=== PATIENT | female | born 1940 | race Caucasian/White ===

== ENCOUNTER 2017-07-11 10:44 | Observation (INO) | payer MEDICARE ==
[2017-07-11 12:25] LABS: ABS Basophils 0.1 10^3/ul (0-0.2); ABS Eosinophils 0.1 10^3/ul (0-0.6); ABS Lymphocytes 0.9 10^3/ul (1.0-4.8); ABS Monocytes 0.5 10^3/ul (0-0.8); ABS Neutrophils 7.9 10^3/ul (1.5-7.7); ABS Nucleated RBC 0 10^3/ul; Eosinophil % 1.3 % (0-6); Hematocrit 37 % (35-47); Hemoglobin 12.6 g/dl (12.0-16.0); Lymphocyte % 9.2 % (25-47); Mean Corpuscular HGB Conc 34 g/dl (31-36); Mean Corpuscular Hemoglobin 32 pg (27-31); Mean Corpuscular Volume 94 fL (80-97); Mean Platelet Volume 10 um3 (7.4-10.4); Nucleated Red Blood Cells % 0.1; Platelet Count 194 10^3/ul (150-450); Red Blood Count 3.92 10^6/ul (4.0-5.4); Red Cell Distribution Width 13 % (10.5-15); White Blood Count 9.6 10^3/ul (3.5-10.8)
[2017-07-11 12:37] LABS: INR 0.95 (0.77-1.02)
[2017-07-11 12:43] LABS: EGFR Non-African American 39.7 (>60)
--- NOTE | 2017-07-11 12:45 | RAD ---
HISTORY: Chest pain COMPARISONS: None VIEWS: 1: frontal portable view of the chest at 12:20 PM FINDINGS: LINES AND TUBES: None. CARDIOMEDIASTINAL SILHOUETTE: The cardiomediastinal silhouette is normal for portable technique. PLEURA: The costophrenic angles are sharp. No pleural abnormalities are noted. LUNG PARENCHYMA: There is hyperinflation. ABDOMEN: The upper abdomen is clear. There is no subphrenic gas. BONES AND SOFT TISSUES: No bone or soft tissue abnormalities are noted. IMPRESSION: HYPERINFLATION. NO ACTIVE CARDIOPULMONARY DISEASE.
[2017-07-11 14:47] LABS: Urine Appearance Cloudy; Urine Blood 1+ (Negative); Urine Color Yellow; Urine Ketones Trace (Negative); Urine Protein Negative (Negative); Urine Specific Gravity 1.016 (1.010-1.030); Urine Urobilinogen Negative (Negative)
[2017-07-11] MEDS ORDERED: Acetaminophen TAB* 325 MG PO PRN (15:01)
[2017-07-11] MEDS ORDERED: Docusate CAP* 100 MG PO PRN (15:05)
--- NOTE | 2017-07-11 15:24 | RAD ---
HISTORY: Fall, syncope, head injury COMPARISONS: None TECHNIQUE: Multiple contiguous axial CT scans were obtained of the head without intravenous contrast. FINDINGS: HEMORRHAGE/INFARCT: There is no hemorrhage or acute infarct. MASSES/SHIFT: There is no mass or shift. EXTRA-AXIAL SPACES: There are no extra-axial fluid collections. SULCI AND VENTRICLES: The sulci and ventricles are normal in size and position for the patient's stated age. CEREBRUM: There is hypoattenuation of the periventricular and subcortical white matter. There is chronic lacunar infarct of the right frontal pramar radiata. BRAINSTEM: There are no focal parenchymal abnormalities. CEREBELLUM: There are no focal parenchymal abnormalities. VESSELS: The vessels are grossly normal. PARANASAL SINUSES: The paranasal sinuses are clear. ORBITS: The orbits are unremarkable. BONES AND SOFT TISSUE: No bone or soft tissue abnormalities are noted. OTHER: None IMPRESSION: NO ACUTE INTRACRANIAL PATHOLOGY. CHRONIC SMALL VESSEL ISCHEMIC CHANGES
[2017-07-11] MEDS: Sulfamethox/Trimethoprim DS 800/160* TAB PO SCH ×2 (16:36→21:33)
[2017-07-11] MEDS ORDERED: Latanoprost 0.005%* 2.5 ml BTL BOTH EYES SCH (18:00)
--- NOTE | 2017-07-11 19:36 | HP ---
ADDENDUM NOW INCLUDED ON THIS REPORT CC: Dr. Rodriguez * HISTORY AND PHYSICAL: DATE OF ADMISSION: 07/11/17 PRIMARY CARE PHYSICIAN: Dr. Rodriguez. ATTENDING PHYSICIAN: Linda Yancey DO * (dictation provided by Vivian Deal NP ). CHIEF COMPLAINT: Syncope. HISTORY OF PRESENT ILLNESS: Ms. 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 The patient states that since that time she has been doing well. She is on multiple blood pressure medications. She has followed with her primary care physician and her blood pressure has been well controlled. She has had no further symptoms. Today, she went to observe a sporting event which her granddaughter was participating in with her 2 daughters. While there, she states she felt quite hot and was wearing a heavy coat indoors as there was nowhere to sit. She is reported to have suddenly leaned back and slid down against a door which opened allowing her to fall and hit her head. She does not remember any prodrome before falling and becoming unresponsive. Her daughter states that she lifted her up, but the patient was very weak. When she was holding her up, the patient again seemed to go unconscious. There is no report of convulsions, loss of bowel/bladder, or biting of the tongue. After a few seconds, she woke up and was back to baseline, asking to go home. The daughter strongly encouraged her to be brought to the hospital via EMS. In the emergency room, Ms. Green has no complaints. She would prefer to be discharged to home as she is feeling well now and does not like to seek out medical care. Her labs show only a slightly elevated creatinine to 1.30 which is the highest that we have seen yet here. Back in November of last year, she was 1.22. Rest of her labs are unremarkable. Her chest x-ray is unremarkable. Her EKG shows a sinus rhythm, but no evidence of ischemia. PAST MEDICAL HISTORY: 1. History of renovascular hypertension. 2. Left renal artery stenosis. 3. Glaucoma of both eyes. 4. Tobacco abuse, quitting in January 2017. 5. Arthritis. 6. 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 7. Cerebral amyloid angiopathy. 8. Posterior reversible encephalopathy syndrome. 9. Hypertensive emergency. 10. GERD. MEDICATIONS: 1. Tylenol p.r.n. 2. Amlodipine 5 mg p.o. b.i.d. 3. Atorvastatin 40 mg p.o. daily. 4. Carvedilol 6.25 mg b.i.d. 5. Docusate 100 mg b.i.d. p.r.n. constipation. 6. Losartan 100 mg p.o. daily. 7. Ranitidine 150 mg p.o. b.i.d. 8. Multivitamin 1 tablet p.o. daily. 9. Ferrous sulfate 325 mg p.o. daily. 10. Latanoprost 0.005% 1 drop both eyes nightly. 11. [place]-3 fatty acid 1 tab by mouth daily. ALLERGIES: No known drug allergies. FAMILY HISTORY: The patient reports that her mom and dad both related to heart issues. Her mom at 82. Dad at 88. Father also had a history of melanoma. SOCIAL HISTORY: The patient quit smoking in 2017, but she smoked since the age of 14. No report of alcohol or drug use. She states that her daughters, Usha and Lois Green, would be her healthcare proxies. REVIEW OF SYSTEMS: A 14-point review of systems was completed with Ms. Green , and all those not mentioned above were negative. PHYSICAL EXAMINATION GENERAL: Ms. Green is sitting up in the bed. She is in no acute distress. Her daughter is at the bedside. VITAL SIGNS: Temperature 99.1, pulse 87, respiratory rate 20, O2 saturation 97 % on room air, blood pressure 133/64. LUNGS: Clear to auscultation bilaterally with no accessory muscle use and good aeration. HEART: S1, S2. No murmur, rub, or gallop, and regular. ABDOMEN: Soft, nontender with bowel sounds positive x4. EXTREMITIES: No cyanosis or edema. NEUROLOGIC: She is alert, she is oriented x3. She moves all extremities equally. Follows all commands appropriately. There is no facial asymmetry. No focal weakness. Extraocular movements are intact. There is no ataxia. SKIN: Intact. DIAGNOSTIC STUDIES/LAB DATA: Sodium 135, potassium 3.8, chloride 101, serum bicarbonate 26, BUN 24, creatinine 1.30, glucose 97, lactic acid 0.6. WBC 9.6, hemoglobin 12.6, hematocrit 37, platelet count 194,000. INR 0.95. Chest x-ray shows no acute intrathoracic process. EKG shows sinus rhythm with a heart rate of about 60 and no evidence of ischemia. ASSESSMENT/PLAN: Ms. Green is a 76-year-old female with a past medical history of admission to [facility] in January 2017 for hypertensive emergency during which time, she was found to have renovascular hypertension secondary to a left renal artery stenosis. That admission was complicated by right middle cerebral artery and cerebrovascular accident, cerebral amyloid angiopathy, and posterior reversible encephalopathy syndrome. The patient states she has been doing well since that admission on her multi-regimen antihypertensive drugs. The patient presents today after a syncopal episode. Our plans are for observation in the hospital for the followin. Syncope: The patient denies any prodrome prior to passing out. I am therefore, more concerned that perhaps she had an arrhythmia or low blood pressure leading to her syncopal episode. Plan for telemetry monitoring. I am not planning to order an echocardiogram as she did have one at [facility] in 2017 that failed to show any significant abnormality including no wall motion or valvular issues. At this point, she is not orthostatic. I plan to continue her current drug regimen and recheck for orthostatic vital signs in the a.m. Her labs are unremarkable. She shows no evidence of infection. It is possible that she did have a vasovagal episode as she feels like that she syncopized due to "feeling hot." However, with the lack of prodrome, this is somewhat less likely. If no etiology is found after 24 hours of telemetry monitoring, we would recommend followup outpatient for Holter monitor or placement of loop recorder. 2. Hypertension. The patient's blood pressure is well controlled, systolically about 110. Plan to continue her regimen of carvedilol, losartan, and amlodipine. 3. Hyperlipidemia. Continue atorvastatin. 4. Gastroesophageal reflux disease. 5. DVT prophylaxis with heparin subcu. 6. Code status is full code. TIME SPENT: Approximately 60 minutes was spent on the admission of this patient ; more than half time was spent with the patient at the bedside reviewing the events leading up to this hospitalization, performing the physical examination, and reviewing my plan of care. ADDENDUM: The patient has urinalysis returned with positive nitrite, 3+ leuk esterase and bacteria. She denied any symptoms of burning or frequency with urination but given her symptoms, I suspect perhaps that UTI was in part the cause of her syncope today. Plan to treat with Bactrim and await urine cultures. VIVIAN DEAL NP [id number]/CPS #: [id number] [id number]/CPS #: [id number] ZULEYMA
--- NOTE | 2017-07-11 19:52 | HP ---
HISTORY AND PHYSICAL: ADDENDUM: The patient has urinalysis returned with positive nitrite, 3+ leuk esterase and bacteria. She denied any symptoms of burning or frequency with urination but given her symptoms, I suspect perhaps that UTI was in part the cause of her syncope today. Plan to treat with Bactrim and await urine cultures. SAHRA PHAN, END FINDER TWISTING DEPARTMENT [id number]/[facility] #: [id number] ZULEYMA
[2017-07-11] MEDS: amLODIPine TAB* 5 MG PO SCH (21:34)
[2017-07-11] MEDS: Heparin VIAL(*) 5000 UNITS/ML VIAL (FIVE THOUSAND) SUBCUT SCH (21:34)
[2017-07-11] MEDS: Carvedilol TAB* 6.25 MG PO SCH (21:34)
[2017-07-12] MEDS: Heparin VIAL(*) 5000 UNITS/ML VIAL (FIVE THOUSAND) SUBCUT SCH (05:41)
[2017-07-12] MEDS ORDERED: Ferrous Sulfate TAB* 325 MG PO SCH (09:00)
[2017-07-12] MEDS ORDERED: Atorvastatin* 40 MG TAB PO SCH (09:00)
[2017-07-12] MEDS ORDERED: Losartan TAB* 25 MG PO SCH (09:00)
[2017-07-12 09:13] VITALS: BP 140/63
[2017-07-12] MEDS: Sulfamethox/Trimethoprim DS 800/160* TAB PO SCH (09:15)
[2017-07-12] MEDS: Carvedilol TAB* 6.25 MG PO SCH (09:15)
[2017-07-12] MEDS: amLODIPine TAB* 5 MG PO SCH (09:15)
--- NOTE | 2017-07-12 16:01 | ED ---
Madhuri Nicholas Julia, scribed for Sher Diaz MD on 07/11/17 at 1139 . Syncope/Near Syncope - HPI Summary HPI Summary: This patient is a 76 year old F BIBA to [facility] accompanied by her daughters with a chief complaint of a syncopal event at 9:50 this morning. Patient reports feeling warm for 10 minutes before event and started feeling better when the ambulance arrived at the scene. Her daughter reports she slid down door fell and hit her head, she couldnt walk, was disoriented, and was shaking her head during syncope. Patient denies pain, changes in appetite, respiratory changes, or bowel symptoms. Patient has history of HTN, renal dysfunction, and a TIA in January 2017. Patient is being seen by DR. Rodriguez at [facility]. - History Of Current Complaint Chief Complaint: EDSyncope Time Seen by Provider: 07/11/17 11:21 Hx Obtained From: Patient, Family/Return To Vendor Onset/Duration: Sudden Onset, Lasting Minutes Context: Witnessed Associated Head Trauma: Yes Aggravating Factor(s): Nothing Alleviating Factor(s): Nothing Associated Signs And Symptoms: Other - couldnt walk, disoriented, and was shaking her head during syncope - Allergies/Home Medications Allergies/Adverse Reactions: Allergies Allergy/AdvReac Type Severity Reaction Status Date / Time No Known Allergies Allergy Verified 02/03/13 09:05 Home Medications: Home Medications Acetaminophen TAB* [Tylenol TAB*] 650 mg PO Q4H PRN 07/11/17 [History Confirmed 07/11/17] Atorvastatin* [Lipitor 40 MG*] 40 mg PO DAILY 07/11/17 [History Confirmed ] Carvedilol TAB* [Coreg TAB*] 6.25 mg PO BID 07/11/17 [History Confirmed 07/11/17 ] Docusate CAP* [Colace Cap*] 1 cap PO BID PRN 07/11/17 [History Confirmed ] Ferrous Sulfate TAB* 325 mg PO DAILY 07/11/17 [History Confirmed 07/11/17] Latanoprost 0.005%* [Xalatan 0.005%*] 1 drop BOTH EYES QPM 07/11/17 [History Confirmed 07/11/17] Losartan TAB* [Cozaar TAB*] 100 mg PO DAILY 07/11/17 [History Confirmed 07/11/17 ] Ranitidine TAB (NF) [Zantac TAB (NF)] 150 mg PO BID 07/11/17 [History Confirmed 07/11/17] amLODIPine TAB* [Norvasc 5 mg TAB*] 5 mg PO BID 07/11/17 [History Confirmed ] PMH/Surg Hx/FS Hx/Imm Hx Endocrine/Hematology History: Denies: Hx Diabetes, Hx Thyroid Disease Cardiovascular History: Reports: Hx Hypertension Respiratory History: Denies: Hx Asthma Neurological History: Reports: Hx Transient Ischemic Attacks (TIA) Infectious Disease History: No Infectious Disease History: Denies: Traveled Outside the [place] in Last 30 Days - Family History Known Family History: Positive: Cardiac Disease, Diabetes, Other - [place] - Social History Alcohol Use: Weekly Substance Use Type: Reports: None Smoking Status (MU): Smoker, Current Status Unknown Type: Cigarettes Amount Used/How Often: 4-5 cigs daily Review of Systems Positive: Other - warm before syncope Positive: Syncope All Other Systems Reviewed And Are Negative: Yes Physical Exam - Summary Physical Exam Summary: Appearance: The patient is well-nourished in no acute distress and in no acute pain. Skin: The skin is warm and dry and skin color reflects adequate perfusion. HEENT: The head is normocephalic and atraumatic. The pupils are equal and reactive. The conjunctivae are clear and without drainage. Nares are patent and without drainage. Mouth reveals moist mucous membranes and the throat is without erythema and exudate. The external ears are intact. The ear canals are patent and without drainage. The tympanic membranes are intact. Neck: the neck is supple with full range of motion and non-tender. There are no carotid bruits. There is no neck vein distension. Respiratory: Chest is non-tender. Lungs are clear to auscultation and breath sounds are symmetrical and equal. Cardiovascular: Heart is regular rate and rhythm. There is no murmur or rub auscultated. There is no peripheral edema and pulses are symmetrical and equal. Abdomen: The abdomen is soft and non-tender. There are normal bowel sounds heard in all four quadrants and there is no organomegaly palpated. Musculoskeletal: There is no back tenderness noted. Extremities are non-tender with full range of motion. There is good capillary refill. There is no peripheral edema or calf tenderness elicited. Neurological: Patient is alert and oriented to person, place and time. The patient has symmetrical motor strength in all four extremities. Cranial nerves are grossly intact. Deep tendon reflexes are symmetrical and equal in all four extremities. Psychiatric: The patient has an appropriate affect and does not exhibit any anxiety or depression. Triage Information Reviewed: Yes Vital Signs On Initial Exam: Initial Vitals Temp Pulse Resp BP Pulse Ox 99.1 F 77 20 133/64 97 07/11/17 10:48 07/11/17 10:48 07/11/17 10:48 07/11/17 10:48 07/11/17 10:48 Vital Signs Reviewed: Yes - [place] Coma Scale Coma Scale Total: 15 Diagnostics - Vital Signs Vital Signs Temp Pulse Resp BP Pulse Ox 07/11/17 10:48 99.1 F 77 20 133/64 97 - Laboratory Lab Results: Lab Results 07/11/17 07/11/17 07/11/17 Range/Units 12:14 12:14 12:14 WBC 9.6 (3.5-10.8) 10^3/ul RBC 3.92 L (4.0-5.4) 10^6/ul Hgb 12.6 (12.0-16.0) g/dl Hct 37 (35-47) % MCV 94 (80-97) fL MCH 32 H (27-31) pg MCHC 34 (31-36) g/dl RDW 13 (10.5-15) % Plt Count 194 (150-450) 10^3/ul MPV 10 (7.4-10.4) um3 Neut % (Auto) 83.2 H (38-83) % Lymph % (Auto) 9.2 L (25-47) % [place] % (Auto) 5.7 (1-9) % Eos % (Auto) 1.3 (0-6) % Baso % (Auto) 0.6 (0-2) % Absolute Neuts (auto) 7.9 H (1.5-7.7) 10^3/ul Absolute Lymphs (auto) 0.9 L (1.0-4.8) 10^3/ul Absolute Monos (auto) 0.5 (0-0.8) 10^3/ul Absolute Eos (auto) 0.1 (0-0.6) 10^3/ul Absolute Basos (auto) 0.1 (0-0.2) 10^3/ul Absolute Nucleated RBC 0 10^3/ul Nucleated RBC % 0.1 INR (Anticoag Therapy) 0.95 (0.77-1.02) Sodium 135 (133-145) mmol/L Potassium 3.8 (3.5-5.0) mmol/L Chloride 101 (101-111) mmol/L Carbon Dioxide 26 (22-32) mmol/L Anion Gap 8 (2-11) mmol/L BUN 24 (6-24) mg/dL Creatinine 1.30 H (0.51-0.95) mg/dL Est GFR ( Amer) 51.1 (>60) Est GFR (Non-Af Amer) 39.7 (>60) BUN/Creatinine Ratio 18.5 (8-20) Glucose 97 (70-100) mg/dL Lactic Acid (0.5-2.0) mmol/L Calcium 9.5 (8.6-10.3) mg/dL Magnesium 2.1 (1.9-2.7) mg/dL Total Bilirubin 0.50 (0.2-1.0) mg/dL AST 23 (13-39) U/L ALT 18 (7-52) U/L Alkaline Phosphatase 126 H (34-104) U/L Troponin I 0.01 (<0.04) ng/mL Total Protein 7.1 (6.4-8.9) g/dL Albumin 3.9 (3.2-5.2) g/dL Globulin 3.2 (2-4) g/dL Albumin/Globulin Ratio 1.2 (1-3) TSH 5.13 (0.34-5.60) mcIU/mL Urine Color Urine Appearance Urine pH (5-9) Ur Specific [place] (1.010-1.030) Urine Protein (Negative) Urine Ketones (Negative) Urine Blood (Negative) Urine Nitrate (Negative) Urine Bilirubin (Negative) Urine Urobilinogen (Negative) Ur Leukocyte Esterase (Negative) Urine WBC (Auto) (Absent) Urine RBC (Auto) (Absent) Ur Squamous Epith Cells (Absent) Urine Bacteria (Absent) Hyaline Casts (Absent) Urine Glucose (Negative) 07/11/17 07/11/17 Range/Units 12:14 14:16 WBC (3.5-10.8) 10^3/ul RBC (4.0-5.4) 10^6/ul Hgb (12.0-16.0) g/dl Hct (35-47) % MCV (80-97) fL MCH (27-31) pg MCHC (31-36) g/dl RDW (10.5-15) % Plt Count (150-450) 10^3/ul MPV (7.4-10.4) um3 Neut % (Auto) (38-83) % Lymph % (Auto) (25-47) % Mccormick % (Auto) (1-9) % Eos % (Auto) (0-6) % Baso % (Auto) (0-2) % Absolute Neuts (auto) (1.5-7.7) 10^3/ul Absolute Lymphs (auto) (1.0-4.8) 10^3/ul Absolute Monos (auto) (0-0.8) 10^3/ul Absolute Eos (auto) (0-0.6) 10^3/ul Absolute Basos (auto) (0-0.2) 10^3/ul Absolute Nucleated RBC 10^3/ul Nucleated RBC % INR (Anticoag Therapy) (0.77-1.02) Sodium (133-145) mmol/L Potassium (3.5-5.0) mmol/L Chloride (101-111) mmol/L Carbon Dioxide (22-32) mmol/L Anion Gap (2-11) mmol/L BUN (6-24) mg/dL Creatinine (0.51-0.95) mg/dL Est GFR ( Amer) (>60) Est GFR (Non-Af Amer) (>60) BUN/Creatinine Ratio (8-20) Glucose (70-100) mg/dL Lactic Acid 0.6 (0.5-2.0) mmol/L Calcium (8.6-10.3) mg/dL Magnesium (1.9-2.7) mg/dL Total Bilirubin (0.2-1.0) mg/dL AST (13-39) U/L ALT (7-52) U/L Alkaline Phosphatase (34-104) U/L Troponin I (<0.04) ng/mL Total Protein (6.4-8.9) g/dL Albumin (3.2-5.2) g/dL Globulin (2-4) g/dL Albumin/Globulin Ratio (1-3) TSH (0.34-5.60) mcIU/mL Urine Color Yellow Urine Appearance Cloudy Urine pH 5.0 (5-9) Ur Specific [place] 1.016 (1.010-1.030) Urine Protein Negative (Negative) Urine Ketones Trace H (Negative) Urine Blood 1+ H (Negative) Urine Nitrate Positive H (Negative) Urine Bilirubin Negative (Negative) Urine Urobilinogen Negative (Negative) Ur Leukocyte Esterase 3+ H (Negative) Urine WBC (Auto) 3+(>20/hpf) H (Absent) Urine RBC (Auto) 1+(3-5/hpf) H (Absent) Ur Squamous Epith Cells Present H (Absent) Urine Bacteria 1+ H (Absent) Hyaline Casts Present H (Absent) Urine Glucose Negative (Negative) Result Diagrams: 07/11/17 12:14 07/11/17 12:14 Lab Statement: Any lab studies that have been ordered have been reviewed, and results considered in the medical decision making process. - Radiology CXR Radiology Interpretation Completed By: Radiologist - HYPERINFLATION. NO ACTIVE CARDIOPULMONARY DISEASE. ED Physician has reviewed this report. - CT Brain CT Interpretation Completed By: Radiologist - NO ACUTE INTRACRANIAL PATHOLOGY. CHRONIC SMALL VESSEL ISCHEMIC CHANGES ED Physician has reviewed this report. - EKG 12:00 Cardiac Rate: NL EKG Rhythm: Sinus Rhythm EKG Interpretation: possible septal infarct Course/Dx Course Of Treatment: Ms. Green had a syncopal episode while watching her grandson play basketball. She slid down the wall and may have hit her head. She was feeling overheated for about 10 minutes prior to the faint. She recovered quickly once she went down. She was watched on the monitor here and her W/U was normal. My guess is that this was a vagal event however she has had a recent CVA and I have asked the hospitalist service to consult on her. - Diagnoses Provider Diagnoses: Syncope and collapse - Physician Notifications Discussed Care of Patient With: Linda Yancey Time Discussed With Above Provider: 13:22 Instructed by Provider To: Admit As Inpatient Discharge - Discharge Plan Condition: Stable Disposition: ADMITTED TO [facility] documentation as recorded by the Madhuri trejo Julia accurately reflects the service I personally performed and the decisions made by me, Sher Diaz MD.
--- NOTE | 2017-07-13 05:41 | DS ---
CC: Dr. Rodriguez * DISCHARGE SUMMARY: DATE OF ADMISSION: DATE OF DISCHARGE: 07/12/17 HOSPITAL COURSE: This 76-year-old woman presented with an episode of syncope. She went to watch a sporting event of her granddaughter. Her daughter accompanied her. There were no seats and she had to stand through the entire game. She had stood for about an hour. She still was wearing her outdoor coat. She is generally very cold and was dressed very thoroughly including thermal underwear. This was about 10 a.m. She had breakfast, she took her medication at 7 a.m. She felt weak and passed out. She did hit her head slightly. The patient was unconscious for only a few seconds. She was brought to the hospital. The patient states she has not had any other previous lightheaded spells. She has been quite fine in the hospital. No chest pain, cough, or shortness of breath. Although, urinalysis abnormal. She does not have any symptoms at all. Even if her culture showed significant numbers of pathogens, I would consider this colonization not warrant treatment. Her syncopal episode is quite explained by the standing for one hour, quite overdressed for cold weather while indoors. There has been no change in her medications. FINAL DIAGNOSES: 1. Syncope. 2. Renovascular hypertension. 3. Left renal artery stenosis with chronic kidney disease. 4. Glaucoma. 5. Long smoking history. 6. Painful legs. 7. Right middle cerebral artery stroke. 8. Cerebral amyloid myelopathy. 9. Status post posterior reversible encephalopathy syndrome. 10. Gastroesophageal reflux disease. DISCHARGE MEDICATIONS: 1. Multivitamin daily. 2. Fish oil daily. 3. Losartan 100 mg daily. 4. Docusate 1 b.i.d. p.r.n. 5. Carvedilol 6.25 mg b.i.d. 6. Atorvastatin 40 mg daily. 7. Acetaminophen 650 mg every 4 hours p.r.n. 8. Amlodipine 5 mg b.i.d. 9. Ranitidine 150 mg b.i.d. 10. Ferrous sulfate 325 mg daily. 11. Latanoprost 0.005% 1 drop both eyes in the evening. [id number]/[facility] #: [id number] [facility]
== END 2017-07-12 09:49 | disposition home or self-care (01) ==
LOC: ED 10:44 → MEDTELE 15:00
PROVIDERS: ADMIT Hospitalist; ATTEND Internal Medicine
DX: R55 Syncope and collapse (principal); I15.0 Renovascular hypertension; I70.1 Atherosclerosis of renal artery; I12.9 Hypertensive chronic kidney disease with stage 1 through stage 4 chronic kidney disease, or unspecified chronic kidney disease; N18.9 Chronic kidney disease, unspecified; G95.89 Other specified diseases of spinal cord; K21.9 Gastro-esophageal reflux disease without esophagitis; Z79.899 Other long term (current) drug therapy; F17.210 Nicotine dependence, cigarettes, uncomplicated; R94.31 Abnormal electrocardiogram [ECG] [EKG]
CPT/HCPCS: 36415; 70450; 71045; 80053; 81003; 81015; 83605; 83735; 84443; 84484; 85025; 85610; 87077; 87086; 87186; 93005; 96372; 99284; A9270-GY; G0378; J1644

== ENCOUNTER 2017-12-13 15:37 | Emergency (ER) | payer MEDICARE ==
[2017-12-13 15:55] VITALS: BP 145/78
--- NOTE | 2017-12-13 16:03 | ED ---
Bite Injury/Animal - HPI Summary HPI Summary: 77F presents with tick present on right side of neck. has been present for greater than 24 hours. family tried to remove it and couldn't. no fever. no rash. not allergic to doxcycline. - History of Current Complaint Chief Complaint: [place] Stated Complaint: TICK Time Seen by Provider: 12/13/17 15:49 Pain Intensity: 0 - Allergies/Home Medications Allergies/Adverse Reactions: Allergies Allergy/AdvReac Type Severity Reaction Status Date / Time No Known Allergies Allergy Verified 12/13/17 15:49 PMH/Surg Hx/FS Hx/Imm Hx Endocrine/Hematology History: Denies: Hx Diabetes, Hx Thyroid Disease Cardiovascular History: Reports: Hx Hypertension Respiratory History: Denies: Hx Asthma Sensory History: Reports: Hx Contacts or Glasses Denies: Hx Hearing Aid Opthamlomology History: Reports: Hx Contacts or Glasses Neurological History: Reports: Hx Transient Ischemic Attacks (TIA) Infectious Disease History: No Infectious Disease History: Denies: Traveled Outside the [place] in Last 30 Days - Family History Known Family History: Positive: Cardiac Disease, Diabetes, Other - [place] - Social History Alcohol Use: Occasionally Substance Use Type: Reports: None Smoking Status (MU): Smoker, Current Status Unknown Type: Cigarettes Amount Used/How Often: 4-5 cigs daily Length of Time of Smoking/Using Tobacco: 50 yrs Review of Systems Negative: Fever Negative: Chest Pain Negative: Shortness Of Breath Positive: Other - tick bite right side of neck All Other Systems Reviewed And Are Negative: Yes Physical Exam Triage Information Reviewed: Yes Vital Signs On Initial Exam: Initial Vitals Temp Pulse Resp BP Pulse Ox 98.2 F 56 18 145/78 96 12/13/17 15:51 12/13/17 15:51 12/13/17 15:51 12/13/17 15:51 12/13/17 15:51 Vital Signs Reviewed: Yes Appearance: Positive: Well-Appearing Skin: Positive: Warm, Dry, Other - tick present right side of neck Head/Face: Positive: Normal Head/Face Inspection Eyes: Positive: Normal, Conjunctiva Clear ENT: Positive: Pharynx normal Respiratory/Lung Sounds: Positive: Clear to Auscultation, Breath Sounds Present Cardiovascular: Positive: Normal, RRR Musculoskeletal: Positive: Normal Neurological: Positive: Normal Psychiatric: Positive: Normal Diagnostics - Vital Signs Vital Signs Temp Pulse Resp BP Pulse Ox 12/13/17 15:51 98.2 F 56 18 145/78 96 - Laboratory Lab Statement: Any lab studies that have been ordered have been reviewed, and results considered in the medical decision making process. Bite Injury Course/Dx - Course Course Of Treatment: 77F presents with tick present on right side of neck. has been present for greater than 24 hours. family tried to remove it and couldn't. no fever. no rash. not allergic to doxcycline. on exam has engorged tick present on right side of neck. removed tick with tick twister. will give ppx dose of doxcycline. patient has dx of htn and can follow up with primary as blood pressure is elevated at this visit. patient understand and agrees with plan. - Diagnoses Differential Diagnosis/HQI/PQRI: Positive: Cellulitis, Other - tick, lyme Provider Diagnosis: Tick bite, Hypertension Discharge - Sign-Out/Discharge Documenting (check all that apply): Discharge/Admit/Transfer - Discharge Plan Condition: Good Disposition: HOME Prescriptions: DOXYcycline CAP(*) [DOXYcycline 100MG CAP(*)] 200 mg PO DAILY #2 cap Patient Education Materials: Tick Bite (ED) Referrals: Phil Rodriguez MD [Primary Care Provider] - Additional Instructions: Take doxycycline two tablets today Keep bite area clean Return to ED if develop any bull eye rash or signs of infection or any new or worsening symptoms - Billing Disposition and Condition Condition: GOOD Disposition: Home
== END 2017-12-13 16:14 | disposition home or self-care (01) ==
LOC: UCCORT 15:37
DX: S10.96XA Insect bite of unspecified part of neck, initial encounter (principal); W57.XXXA Bitten or stung by nonvenomous insect and other nonvenomous arthropods, initial encounter; Y93.9 Activity, unspecified; Y92.9 Unspecified place or not applicable; I10 Essential (primary) hypertension; F17.210 Nicotine dependence, cigarettes, uncomplicated
CPT/HCPCS: 99212; G0463